=== PATIENT | male | born 1975 | race Caucasian/White ===

== ENCOUNTER 2019-10-17 11:43 | Outpatient (CLI) | payer BC ==
--- NOTE | 2019-10-17 12:15 | RAD ---
XR Hip Rt 2-3 View HISTORY: Right hip pain COMPARISON: None. FINDINGS: No fracture, dislocation or bony destruction is seen. There are mild degenerative changes. IMPRESSION: No acute process
== END 2019-10-17 11:44 | disposition home or self-care (01) ==
LOC: BICRAD 11:43
PROVIDERS: ATTEND Family Medicine
DX: M25.551 Pain in right hip (principal)

== ENCOUNTER 2019-11-02 07:43 | Outpatient (CLI) | payer BC ==
--- NOTE | 2019-11-02 09:37 | MRI ---
RIGHT HIP MRI WITHOUT IV CONTRAST: Date: 11/02/2019 HISTORY: Right hip pain. FINDINGS: Multiplanar, multisequence MRI examination of the right hip is performed. There is extensive abnormal signal involving the superior right femoral head, evidence for severe steffany scular necrosis. There is no significant collapse. There is a vertically oriented fracture extending from the central femoral head caudally to the base of the femoral neck and femoral head. There is als o minimal marrow edema in the intertrochanteric region, probably also stress related. There is extens alexandre abnormal signal associated with the superior and anterior labrum, evidence for considerable vane l degenerative tearing. No significant hip joint space loss at this time. IMPRESSION: 1. 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 2. Linear stress fracture involving the femoral head and extending into the medial femoral head/neck junction. 3. Minimal stress-related edema in the femoral intertrochanteric region, as well as some joint effus ion. 4. 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 CODE T. POS: RRE
== END 2019-11-02 07:44 | disposition home or self-care (01) ==
LOC: TBSIIMAG 07:43
PROVIDERS: ATTEND Orthopaedic Surgery
DX: M25.551 Pain in right hip (principal)